=== PATIENT | female | born 1990 | race Two or more races ===

== ENCOUNTER 2016-05-31 20:38 | Emergency (ER) | payer SELFPAY ==
[~2016-05-31] VITALS: Ht 167.6 cm; Wt 53.5 kg
[2016-05-31 20:46] VITALS: BP 138/98
--- NOTE | 2016-05-31 22:33 | NUR ---
Patient not seen in room for discharge paper handoff.
== END 2016-05-31 22:36 | disposition left against medical advice (07) ==
LOC: ER 20:40
DX: S29.011A Strain of muscle and tendon of front wall of thorax, initial encounter (principal); J06.9 Acute upper respiratory infection, unspecified; F41.9 Anxiety disorder, unspecified; X58.XXXA Exposure to other specified factors, initial encounter; Y92.89 Other specified places as the place of occurrence of the external cause; Y93.89 Activity, other specified; Y99.8 Other external cause status
CPT/HCPCS: 71010-TC; A4606; Z7610